=== PATIENT | male | born 1965 | race Two or more races ===

== ENCOUNTER 2025-05-14 12:07 | Emergency (ER) | payer MEDICAID ==
[~2025-05-14] VITALS: Ht 175.3 cm; Wt 73.2 kg
[2025-05-14] MEDS ORDERED: SODIUM CHLORIDE 0.9% 1,000 ML IV ONE (12:15)
[2025-05-14 12:20] VITALS: TEMP 97.7
--- NOTE | 2025-05-14 12:21 | ED.PDOC ---
HPI Comments This is a 60 year old male presenting to the ED with chief complaint of abnormal EKG. Patient reports that he was in [facility] for pre-op for surgery to his left shoulder this morning. Patient relays that an EKG was performed and he was found to have a possible acute CO, so he had been taken to the ED for further evaluation. Patient denies any chest pain, SOB, dizziness, headache, left arm pain, nausea, vomiting, or abdominal pain at this time. Chief Complaint: Medical Clearance Time Seen by MD: 12:19 Reviewed Notes: Nurses Notes, Medications, Allergies Information Source: Patient Mode of Arrival: Ambulatory Severity: Moderate Timing: Hours Duration: Since onset Prehospital treatment: 12 Lead EKG PE Risk Factors: None History of: None Associated Signs and Symptoms: None Past Medical History PAST MEDICAL HISTORY: Denies Surgical History: Denies all surgeries Family History Family History: Reviewed,noncontributory to illness Social History Smoker: Non-Smoker Alcohol: Denies ETOH Use Drugs: Denies Drug Use Lives In: Home Constitutional: denies: chills, diaphoresis, fatigue, fever, malaise, sweats, weakness, others EENTM: denies: blurred vision, double vision, ear bleeding, ear discharge, ear drainage, ear pain, ear ringing, eye pain, eye redness, hearing loss, mouth pain, mouth swelling, nasal discharge, nose bleeding, nose congestion, nose pain, photophobia, tearing, throat pain, throat swelling, voice changes, others Respiratory: denies: cough, hemoptysis, orthopnea, SOB at rest, shortness of breath, SOB with excertion, stridor, wheezing, others Cardiovascular: denies: chest pain, dizzy spells, diaphoresis, Dyspnea on exertion, edema, irregular heart beat, left arm pain, lightheadedness, palpitations, PND, syncope, others Gastrointestinal: denies: abdomen distended, abdominal pain, blood streaked bowels, constipated, diarrhea, dysphagia, difficulty swallowing, hematemesis, melena, nausea, poor appetite, poor fluid intake, rectal bleeding, rectal pain, vomiting, others Genitourinary: denies: burning, dysuria, flank pain, frequency, hematuria, incontinence, penile discharge, penile sore, pain, testicle pain, testicle swelling, urgency, others Neurological: denies: dizziness, fainting, headache, left sided numbness, left sided weakness, numbness, paresthesia, pre-existing deficit, right sided numbness, right sided weakness, seizure, speech problems, tingling, tremors, weakness, others Musculoskeletal: denies: back pain, gout, joint pain, joint swelling, muscle pain, muscle stiffness, neck pain, others Integumetry: denies: bruises, change in color, change in hair/nails, dryness, laceration, lesions, lumps, rash, wounds, others Allergic/Immunocompromised: denies: Difficulty Healing, Frequent Infections, Hives, Itching, others Hematologic/Lymphatic: denies: anemia, blood clots, easy bleeding, easy bruising, swollen glands, others Endocrine: denies: excessive hunger, excessive sweating, excessive thirst, excessive urination, flushing, intolerance to cold, intolerance to heat, unexplained weight gain, unexplained weight loss, others Psychiatric: denies: anxiety, bipolar disorder, depression, hopeless, panic disorder, schizophrenia, sleepless, suicidal, others All Other Systems: Reviewed and Negative Physical Exam General Appearance: No Apparent Distress, Normal HEENT: Normal ENT Inspection, PERRL/EOMI Neck: Full Range of Motion, Non-Tender, Normal, Normal Inspection Respiratory: Chest Non-Tender, Lungs Clear, No Accessory Muscle Use, No Respiratory Distress, Normal Breath Sounds Cardiovascular: No Edema, No JVD, No Murmur, No Gallop, Normal Peripheral Pulses, Regular Rate/Rhythm Breast Exam: Deferred Gastrointestinal: No Organomegaly, Non Tender, No Pulsatile Mass, Normal Bowel Sounds, Soft Genitalia: Deferred Pelvic: Deferred Rectal: Deferred Extremities: No calf tenderness, Normal capillary refill, Normal inspection, Normal range of motion, Non-tender, No pedal edema Musculoskeletal : Location: Left Extremity Location: Radial, Shoulder, Other (Patient was being prepped for surgeries on Monday left shoulder) Apperance: Normal, Tenderness: Mild Neurologic: Alert, gore inserter II-XII nml as Tested, No Motor Deficits, Normal Affect, Normal Mood, No Sensory Deficits Cerebellar Function: Normal Reflexes: Normal Skin: Dry, Normal Color, Warm Peripheral Pulses: 1+ carotid (R), 1+ carotid (L) Lymphatic: No Adenopathy EKG EKG : Pulse Rate (adult): 74 Hassell: Normal Cardiac Rhythm: NSR Block: None Hypertrophy: None ST: Nonsp Was a procedure done? Was a procedure done?: No CP Differential Dx Differential Diagnosis: CO Differential Diagnosis: N/A Differential Diagnosis: Other X-Ray, Labs, Meds, VS Vital Signs Date Time Temp Pulse Resp B/P (MAP) Pulse Ox O2 Delivery O2 Flow Rate FiO2 05/14/25 13:47 64 14 105/66 (79) 98 05/14/25 12:46 60 9 115/63 (80) 98 05/14/25 12:46 60 9 98 Room Air* 0 21 05/14/25 12:23 74 05/14/25 12:20 97.7 69 16 106/67 96 97.7 Lab Test 05/14/25 12:33 Range/Units White Blood Count 3.9 L 4.4-10.8 10^3/uL Red Blood Count 4.93 4.5-5.90 10^6/uL Hemoglobin 13.9 13.5-17.5 g/dL Hematocrit 40.5 L 41.0-53.0 % Mean Corpuscular Volume 82.1 80.0-100.0 fL Mean Corpuscular Hemoglobin 28.1 28.0-32.0 pg Mean Corpuscular Hemoglobin Concent 34.2 32.0-36.0 g/dL Red Cell Distribution Width 13.2 11.8-14.3 % Platelet Count 189 140-450 10^3/uL Mean Platelet Volume 8.1 6.9-10.8 fL Neutrophils (%) (Auto) 55.8 37.0-80.0 % Lymphocytes (%) (Auto) 33.2 10.0-50.0 % Monocytes (%) (Auto) 9.0 0.0-12.0 % Eosinophils (%) (Auto) 1.4 0.0-7.0 % Basophils (%) (Auto) 0.6 0.0-2.0 % Neutrophils # (Auto) 2.2 1.6-8.6 10 ^3/uL Lymphocytes # (Auto) 1.3 0.4-5.4 10 ^3/uL Monocytes # (Auto) 0.3 0-1.3 10 ^3/uL Eosinophils # (Auto) 0.1 0-0.8 10 ^3/uL Basophils # (Auto) 0 0-0.2 10 ^3/uL Nucleated Red Blood Cells 0.1 % Sodium Level 139 136-145 mmol/L Potassium Level 4.4 3.5-5.1 mmol/L Chloride Level 104 98-107 mmol/L Carbon Dioxide Level 29 20-31 mmol/L Anion Gap 6 5-15 Blood Urea Nitrogen 16 9-23 mg/dL Creatinine 0.83 0.700-1.30 mg/dL Glomerular Filtration Rate Calc 100 >90 mL/min BUN/Creatinine Ratio 19.3 10.0-20.0 Serum Glucose 149 H 74-106 mg/dL Calcium Level 8.9 8.7-10.4 mg/dL Magnesium Level 2.1 1.6-2.6 mg/dL Troponin I High Sensitivity < 3 L </=54 ng/L X-Ray, Labs, Meds, VS Comment Seen in the emergency department uneventful patient came in for his shoulder but end up in the emergency department for abnormal EKG which we thought was per. 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 has seen the patient and evaluate him we doubt that it is an myocardial chest x-ray is normal Patient will be discharged home to follow up with his PCP Time of 1ST Reevaluation: 13:18 Reevaluation 1ST: Unchanged Consultation: PCP Patient Education/Counseling: Diagnosis, Treatment, Prognosis Family Education/Counseling: Diagnosis, Treatment, Prognosis, No Family Present SEPSIS Sepsis Screen Physician Orders Heplock Iv (05/14/25 12:12) Chest Two Views Routine (05/14/25 12:12) Sodium Chloride 0.9% (05/14/25 12:15) Chest Two Views Routine (05/14/25 14:02) Vital Signs Date Time Temp Pulse Resp B/P (MAP) Pulse Ox O2 Delivery O2 Flow Rate FiO2 05/14/25 13:47 64 14 105/66 (79) 98 05/14/25 12:46 60 9 115/63 (80) 98 05/14/25 12:46 60 9 98 Room Air* 0 21 05/14/25 12:23 74 05/14/25 12:20 97.7 69 16 106/67 96 97.7 Laboratory Tests Test 05/14/25 12:33 White Blood Count 3.9 10^3/uL (4.4-10.8) L Departure 1 Departure Time of Disposition: 14:24 Impression: Primary Impression: Abnormal electrocardiogram [ECG] [EKG] Ruled Out: Septal myocardial infarction Disposition: 01 HOME / SELF CARE / HOMELESS Condition: Good Discharged With: Self Critical Care Note Critical Care Time?: No Stability Stability form required: No Comments Patient did not have an CO and is cleared for surgery as far as the ER is concerned Heart Score Heart Score: Heart Score Response (Comments) Value History Highly Suspicious [address]-Deviation 2 Age 45-64 1 Risk Factors 1 or 2 risk factors 1 Troponin Normal limit 0 Total 6 I personally scribed for JESSICA ALVARENGA MD ([email or web address]) on 05/14/25 at 12:21. Electronically submitted by Fan Diaz ([email or web address]). I personally scribed for JESSICA ALVARENGA MD ([email or web address]) on 05/14/25 at 12:23. Electronically submitted by Fan Diaz ([email or web address]). JESSICA ALVARENGA MD May 14, 2025 12:21
[2025-05-14 12:46] VITALS: PULSE 60; RESP 9; O2SAT 98
--- NOTE | 2025-05-14 12:54 | DVH ---
Indication: Abnormal EKG Technique: XY CHEST TWO VIEWS ROUTINEXY Comparison: None FINDINGS/IMPRESSION: The cardiac silhouette is angulated towards the right. There is a right-sided aortic arch. The live r appears to be beneath the left hemidiaphragm. This could be secondary to situs inversus or technolo gist accidentally flipping The imaged. Correlate clinically. Repeat radiograph can be obtained to ev aluate.
[2025-05-14 13:09] LABS: Hematocrit 40.5 % (41.0-53.0); Hemoglobin 13.9 g/dL (13.5-17.5); Mean Corpuscular Hemoglobin 28.1 pg (28.0-32.0); Mean Corpuscular Volume 82.1 fL (80.0-100.0); Nucleated Red Blood Cells % 0.1 %
[2025-05-14 13:14] LABS: Chloride 104 mmol/L (98-107); Potassium 4.4 mmol/L (3.5-5.1); Sodium 139 mmol/L (136-145)
[2025-05-14 13:15] LABS: Anion Gap 6 (5-15); Carbon Dioxide 29 mmol/L (20-31)
[2025-05-14 13:16] LABS: Calcium 8.9 mg/dL (8.7-10.4)
[2025-05-14 13:21] LABS: BUN/Creatinine Ratio 19.3 (10.0-20.0); Blood Urea Nitrogen 16 mg/dL (9-23); Magnesium 2.1 mg/dL (1.6-2.6)
[2025-05-14 13:23] LABS: Glucose 149 mg/dL (74-106)
[2025-05-14 13:47] VITALS: BP 105/66; PULSE 64; RESP 14; O2SAT 98
--- NOTE | 2025-05-14 14:35 | DVH ---
XY CHEST TWO VIEWS ROUTINE CLINICAL HISTORY: repeat COMPARISON: XY CHEST TWO VIEWS ROUTINE on DOS: 05/14/25 TECHNIQUE: Frontal and lateral view of the chest was obtained FINDINGS: Lines and Tubes: None Lungs: No focal consolidation. Pleura: No effusion. No pneumothorax. Cardiomediastinal contours: Unremarkable Bones: No acute osseous abnormality. IMPRESSION: 1. No acute cardiopulmonary disease.
== END 2025-05-14 14:50 | disposition home or self-care (01) ==
LOC: ER 12:07
DX: Z01.810 Encounter for preprocedural cardiovascular examination (principal); Z79.899 Other long term (current) drug therapy
CPT/HCPCS: 36415; 71046; 80048; 83735; 84484; 85025

== ENCOUNTER → 2025-05-19 | Day surgery (SDC) | payer MEDICAID ==
[2025-05-14 15:34] LABS: Urine Protein, UAD Negative (Negative)
[2025-05-14 16:18] LABS: INR 1.02 (0.9-1.15); Partial Thromboplastin Time 32.5 SEC (24.5-34.5); Prothrombin Time 10.8 sec (9.3-11.8)
[~2025-05-19] VITALS: Ht 175.3 cm; Wt 73.0 kg
[~2025-05-19] MED LIST: BUPIVACAINE 0.5% MPF INJ 30ML SDV IJ ONE; HYDROmorphone HCL 2 MG/ML VL/or syr IV PRN; LIDOCAINE 1%-Mpf/Epinephrine 1:200,000 30ml VIAL ONE; LIDOCAINE 2% (LOCAL ANESTH.) PF 5ml SDV ONE; METOCLOPRAMIDE HCL 5MG/ml INJ 2ml VIAL ONE; MIDAZOLAM HCL 2MG/2ML 2ml VIAL (1mg/ml) ONE; ONDANSETRON HCL 4 MG/2 ML VIAL IV PRN; ONDANSETRON HCL 4 MG/2 ML VIAL ONE; POVIDONE IODINE 10 % TOPICAL OINT 30GM TOP ONE; PROPOFOL 10 MG/ML 20 ML IV ONE; ceFAZolin 2 GM/D5W50ml 50 ML IV ONE; fentaNYL CITRATE 100 MCG/2 ML VL ONE
[2025-05-19 08:45] VITALS: PULSE 69; RESP 10; TEMP 97.8; O2SAT 97
[2025-05-19 09:45] VITALS: BP 96/61; PULSE 61; RESP 16; O2SAT 96
--- NOTE | 2025-05-19 10:00 | DVHOP2 ---
Operative Report - 2 Report Details Date: 05/19/25 Preop Diagnosis: left shoulder mass Postop Diagnosis: left shoulder lipoma Surgeon: Dr. Jose Avendaño Anesthesiologist: Dylan Mcleod CRNA Anesthesia: Mac Consent: The patient was informed of the risks and benefits of the procedure. These include but are not limited to complications of anesthesia, postoperative infection, incomplete relief of symptoms, recurrence of symptoms, damage to blood vessels, nerves and tendons, deep venous thrombosis, pulmonary embolism and possible need for repeat surgery in the future. Name of Procedure Performed excision of left shoulder mass Procedure Details Procedure Details: Under the supervision of Dr. Nugent and under adequate anesthesia the patient was placed in a right lateral position. The left shoulder was prepped and draped in a sterile fashion. Prior to incision the area was infiltrated with 1:1 0.25% Marcaine and 1% lidocaine a horizontal incision was made to excise the lipoma. The wound was than irrigated with normal saline and the wound was closed with 0-Prolene sutures. Dressings were applied. patient tolerated the procedure well. Sponge, needle and blade counts were correct at termination of procedure. Patient transferred to recovery with out incident. Specimen: lipoma Condition Good Disposition Home SEAN AVENDAÑO NP May 19, 2025 10:00
== END | disposition home or self-care (01) ==
LOC: SUR 07:18
PROVIDERS: ATTEND Surgery
DX: D17.22 Benign lipomatous neoplasm of skin and subcutaneous tissue of left arm (principal); R22.32 Localized swelling, mass and lump, left upper limb; E11.9 Type 2 diabetes mellitus without complications
CPT/HCPCS: 23071; 36415; 81001; 82962; 85610; 85730; 88305; J0690; J2003; J2004; J2250; J2405; J2704; J2765; J3010; J3490